=== PATIENT | male | born 1990 | race American Indian/Alaskan Native ===

== ENCOUNTER 2019-04-30 20:58 | Emergency (ER) | payer SELFPAY ==
[2019-04-30 21:07] VITALS: BP 145/96
--- NOTE | 2019-04-30 21:43 | Emergency Department Report ---
Chief Complaint: Urogenital-Male Stated Complaint: STD Time Seen by Provider: 04/30/19 21:40 - HPI History of Present Illness: This is a 28 y.o. M. that presents to the ER for STD treatment. Patient denies discharge, pelvic pain, back pain, testicular swelling or pain, fever, any urinary symptoms, chills, or n/v. Patient states his baby david had a confirmed at [facility] and treated for chlamydia. Patient states "I just want to be treated". - Exam Vital Signs: Vital Signs 04/30/19 21:05 Temperature 98.9 F Pulse Rate 108 H Respiratory 16 Rate Blood Pressure 145/96 O2 Sat by Pulse 99 Oximetry MSE screening note: Focused history and physical exam performed. Due to findings the following was ordered: ED Medical Decision Making - Medical Decision Making This is a 28-year-old male nontoxic, well in appearance with no signs of distress presents to the ED for STD check. Patient stated that his partner was treated for chlamydia. Patient stated he is asymptotic. Patient was approached by registration for insurance or copay but patient refused. I gave patient many different referrals to follow-up with STD concerns. Patient was instructed to Follow-up with a primary care doctor in 3-5 days or if symptoms worsen to return to emergency room as soon as possible. At time of discharge, the patient does not seem toxic or ill in appearance. Patient agrees to discharge treatment plan of care. No further questions noted by the patient. ED Disposition for MSE Clinical Impression: STD exposure, Feared complaint without diagnosis Disposition: DC-01 TO HOME OR SELFCARE Is pt being admited?: No Does the pt Need Aspirin: No Condition: Stable Instructions: Safe Sex (ED), Sexually Transmitted Diseases (ED) Referrals: [facility] [Outside] - 3-5 Days [facility] [Outside] - 3-5 Days [facility] [Outside] - 3-5 Days [facility] [Outside] - 3-5 Days [facility] [Outside] - 3-5 Days Forms: Work/School Release Form(ED) Time of Disposition: 22:04
== END 2019-04-30 22:07 | disposition home or self-care (01) ==
LOC: ED 20:58
DX: Z71.1 Person with feared health complaint in whom no diagnosis is made (principal)
CPT/HCPCS: 99281